=== PATIENT | female | born 1950 | race American Indian/Alaskan Native ===

== ENCOUNTER 2016-09-12 13:14 | Outpatient (CLI) | payer MEDICARE ==
--- NOTE | 2016-09-13 08:54 | Mammography Report ---
BONE DEXA:09/12/16 13:14:00 CLINICAL: Postmenopausal. No comparison. TECHNIQUE: Two site bone DEXA performed on an [employer] scanner. FINDINGS: The average BMD of the lumbar spine L1-L4 is 1.519g/cm squared with a T-score of +3.4 and a Z-score of +5.3. The average BMD of the left hip is 1.385g/cm squared with a T-score of +2.3 and a Z-score of 3.2. IMPRESSION: WHO classification: Normal with average fracture risk based on the spine and left hip measurements. RECOMMENDATION: Clinical correlation and routine screening. DEFINITIONS: BMD = Bone Mineral Density T-score = BMD related to mean peak bone mass of young adult (mean expressed in Standard Deviation) Z-score = Age matched BMD expressed in SD World Health Organization (WHO) Diagnostic Criteria Normal T-score > -1 SD Osteopenia T-score between -1 and -2.4 SD Osteoporosis T-score -2.5 SD or below NOTE: BMD is not the only risk factor for fracture. One should also consider factors such as the patient's age, risk of falling, previous osteoporotic fracture, family history of osteoporotic fractures, current smoker, and low body weight. Z-scores are not calculated if >80 years of age.
--- NOTE | 2016-09-13 09:25 | XRay Report ---
RIGHT SHOULDER, THREE VIEWS HISTORY: Shoulder pain. FINDINGS: Mild osteoarthritic changes are identified at the right glenohumeral joint. No evidence for fracture, dislocation or ligamentous injury. Normal soft tissues. IMPRESSION: Minimal osteoarthritic changes.
== END 2016-09-12 13:15 | disposition home or self-care (01) ==
LOC: SPVWC 13:14
PROVIDERS: ATTEND Internal Medicine Rheumatology
DX: M81.0 Age-related osteoporosis without current pathological fracture (principal); Z78.0 Asymptomatic menopausal state
CPT/HCPCS: 77080

== ENCOUNTER 2017-07-25 11:59 | Outpatient (CLI) | payer MEDICARE ==
--- NOTE | 2017-07-25 16:38 | Mammography Report ---
BILATERAL DIGITAL SCREENING MAMMOGRAM with CAD: 07/25/17 11:59:00 CLINICAL: Routine screening. COMPARISON:07/24/16 FINDINGS: The breasts are mostly fatty. No mass, architectural distortion or suspicious calcifications. IMPRESSION: No mammographic evidence of malignancy. BI-RADS CATEGORY: 1 - - Negative RECOMMENDATION: Routine mammographic screening in one year. COMMENT: Patient follow-up letters are generated by our [employer] application.
== END 2017-07-25 12:00 | disposition home or self-care (01) ==
LOC: SPVWC 11:59
PROVIDERS: ATTEND Family Medicine
DX: Z12.31 Encounter for screening mammogram for malignant neoplasm of breast (principal)
CPT/HCPCS: 77067

== ENCOUNTER 2019-03-06 10:06 | Outpatient (CLI) | payer MEDICARE ==
--- NOTE | 2019-03-09 09:39 | Mammography Report ---
BILATERAL DIGITAL SCREENING MAMMOGRAM WITH CAD INDICATION: Routine screening mammography. TECHNIQUE: Digital bilateral 2D mammography was obtained in the craniocaudal and mediolateral obliq ue projections. This examination was interpreted with the benefit of Computer-Aided Detection analysi s. COMPARISON: 07/25/2017 FINDINGS: Breast Density: The breasts are almost entirely fatty. No mass, architectural distortion or suspicious calcifications. IMPRESSION:No mammographic evidence of malignancy. BI-RADS Category 1: Negative. No mammographic evidence of malignancy. Recommend routine screening m ammography in one year. A "normal" or negative report should not discourage follow up or biopsy of a clinically significant f inding. A written summary of these findings will be mailed to the patient. The patient will be entered into a mammography reporting system which will generate a reminder letter for the patient's next appointmen t at the appropriate interval. The [employer] recommends yearly mammograms starting at age 40 and continuing as l [place] as a woman is in good health. Breast MRI is recommended for women with an approximate 20-25% or greater lifetime risk of breast cancer, including women with a strong family history of breast or ova jessica cancer or who have been treated for Hodgkin's disease. Signer Name: Devang Snow MD Signed: 03/09/2019 9:34 AM Workstation Name: [id number]
--- NOTE | 2019-03-09 10:23 | Mammography Report ---
BONE DEXA CLINICAL: 09/12/2016 TECHNIQUE: 2 site bone DEXA performed on an [employer] scanner. FINDINGS: The average BMD of the lumbar spine L1, L3 and L4 is 1.592g/cm squared with a T score of 4.0 and a Z score of 6.1. The L2 vertebral body was excluded as an outlier. This compares to 1.494g/cm squared on the last exam and represents a + 6.6 percent change from the [previous baseline]. The average BMD of the left hip is 1.371 g/cm squared with a T score of 2.2and a Z score of 3.2. This compares to 1.385 g/cm squared on the last exam and represents a -1.0 percent change from the [previ ous baseline]. IMPRESSION: 1. WHO classification: Normal with average fracture risk based on spine measurements. 2. WHO classification normal with average fracture risk based on left hip measurements. 3. A moderate increase in spine BMD and a modest decline in left hip BMD compared to the last exam. RECOMMENDATION: Clinical correlation and routine screening. Definitions: BMD equal bone mineral density T score = BMD related to peak bone mass of young adult ([place] expressed an standard deviation) Z score = age-matched BMD expressed in SD World health organization (WHO) diagnostic criteria Normal T score greater than equal to 1 standard deviation Osteopenia T score between -1 and -2.4 standard deviation Osteoporosis T score -2.5 standard deviation or below. Note: BMD is not the only risk factor for fracture; also consider factors such as the patient's age, risk of falling, previous osteoporotic fracture, family history of osteoporotic fractures, current sm oker and low body weight. Z scores are not calculated if greater than 80 years of age. Signer Name: Devang Snow MD Signed: 03/09/2019 10:18 AM Workstation Name: [id number]
== END 2019-03-06 10:07 | disposition home or self-care (01) ==
LOC: SPVWC 10:06
PROVIDERS: ATTEND Family Medicine
DX: Z12.31 Encounter for screening mammogram for malignant neoplasm of breast (principal); Z78.0 Asymptomatic menopausal state
CPT/HCPCS: 77067; 77080